=== PATIENT | male | born 1980 | race Caucasian/White ===

== ENCOUNTER → 2016-10-24 | Outpatient (CLI) | payer OTHER ==
[~2016-10-24] MED LIST: ACET-1600 PO; MULT-658 PO
== END | disposition home or self-care (01) ==
LOC: STAR 15:30
PROVIDERS: ATTEND Surgery
DX: Z02.9 Encounter for administrative examinations, unspecified (principal)

== ENCOUNTER 2016-11-06 09:00 | Day surgery (SDC) | payer OTHER ==
[~2016-11-06] VITALS: Ht 180.3 cm; Wt 92.1 kg
[2016-11-06 09:15] VITALS: BP 127/77
[2016-11-06] MEDS ORDERED: LACTATED RINGERS 1,000 ML IV SCH (09:16)
[2016-11-06] MEDS ORDERED: LIDOCAINE 1%, 2ML ONE (09:20)
[2016-11-06] MEDS ORDERED: LIDOCAINE 1%, 2ML SQ PRN (09:30)
[2016-11-06] MEDS ORDERED: EPINEPHRINE 1 MG/ML, 1ML ONE (10:39)
[2016-11-06] MEDS ORDERED: BUPIVACAINE/PF 0.5% ONE (10:39)
[2016-11-06] MEDS ORDERED: MIDAZOLAM 1 MG/ML, 2ML ONE (10:53)
[2016-11-06] MEDS ORDERED: FENTANYL PF 100 MCG/2ML ONE ×2 (10:53)
[2016-11-06] MEDS ORDERED: BUPIVACAINE/PF-EPI 0.5% 1:200K IM ONE (11:00)
[2016-11-06] MEDS ORDERED: BUPIVACAINE/PF-EPI 0.25% 1:200K ONE (11:14)
[2016-11-06] MEDS ORDERED: cloniDINE/PF 100 MCG/ML, 10 ML ONE (11:14)
[2016-11-06] MEDS ORDERED: CEFAZOLIN 1,000 MG ONE (11:22)
[2016-11-06] MEDS ORDERED: PROPOFOL 10 MG/ML, 20ML ONE (11:22)
[2016-11-06] MEDS ORDERED: ONDANSETRON 2MG/ML, 2ML ONE (11:22)
[2016-11-06] MEDS ORDERED: KETOROLAC 30 MG/1 ML ONE (11:22)
[2016-11-06] MEDS ORDERED: KETAMINE 10 MG/ML, 20ML ONE (11:22)
[2016-11-06] MEDS ORDERED: DEXAMETHASONE 4 MG/ML, 1ML ONE (11:22)
[2016-11-06] MEDS ORDERED: ROCURONIUM 10 MG/ML ONE (11:22)
[2016-11-06] MEDS ORDERED: ACETAMINOPHEN 325 MG TABLET PO PRN (12:00)
[2016-11-06] MEDS ORDERED: PROMETHAZINE 25 MG/ML, 1ML IV PRN (12:00)
[2016-11-06] MEDS ORDERED: ONDANSETRON 2MG/ML, 2ML IVPush PRN (12:00)
[2016-11-06] MEDS ORDERED: HYDROmorphone 1 MG/ML, 1ML IV PRN (12:00)
[2016-11-06] MEDS ORDERED: FENTANYL PF 100 MCG/2ML IV PRN (12:00)
[2016-11-06] MEDS ORDERED: MEPERIDINE/PF 25MG/0.5ML IVPush PRN (12:00)
[2016-11-06] MEDS ORDERED: OXYcodone 5 MG/5 ML ORAL.SOL UDC PO PRN (12:00)
[2016-11-06] MEDS ORDERED: LORazepam 2 MG/ML, 1ML IVPush PRN (12:00)
[2016-11-06] MEDS ORDERED: OXYcodone 5 MG/5 ML ORAL.SOL UDC ONE (13:14)
[2016-11-06] MEDS ORDERED: ACETAMINOPHEN 650 MG/20.3 ML UDC ONE (13:14)
== END 2016-11-06 16:00 | disposition home or self-care (01) ==
LOC: OUT 09:00
PROVIDERS: ATTEND Surgery
DX: K40.91 Unilateral inguinal hernia, without obstruction or gangrene, recurrent (principal)
CPT/HCPCS: 49650; C1781; J0171; J0690; J0735; J1100; J1885; J2250; J2405; J2704; J3010; J3490; J7120; S2900

== ENCOUNTER 2016-11-08 04:21 | Inpatient (IN) | payer OTHER ==
[~2016-11-08] VITALS: Ht 180.3 cm; Wt 93.0 kg
[2016-11-08] MEDS ORDERED: SODIUM CHLORIDE 0.9% 1,000 ML IV ONE (04:46)
[2016-11-08] MEDS ORDERED: HYDROmorphone 1 MG/ML, 1ML ONE ×3 (04:56→07:47)
[2016-11-08] MEDS ORDERED: ONDANSETRON 2MG/ML, 2ML ONE (04:56)
[2016-11-08] MEDS ORDERED: SODIUM CHLORIDE FLUSH 10ML SYR IVF ONE (05:00)
[2016-11-08] MEDS ORDERED: ONDANSETRON 2MG/ML, 2ML IVPush ONE (05:00)
[2016-11-08] MEDS ORDERED: SODIUM CHLORIDE 0.9% 1,000ML IVBOLUS ONE (05:00)
[2016-11-08] MEDS: HYDROmorphone 1 MG/ML, 1ML IVPush PRN ×2 (05:00→05:25)
[2016-11-08 05:34] LABS: HEMATOCRIT 47.7 % (39.2-51.8); HEMOGLOBIN 16.2 g/dL (13.7-18.0); WHITE BLOOD COUNT 11.8 x10^3/uL (3.4-10)
[2016-11-08 05:54] LABS: ASPARTATE AMINO TRANSFERASE 20 U/L (15-37); BLOOD UREA NITROGEN 17 mg/dL (7-18)
[2016-11-08 06:17] LABS: PATH.CAST-FLAG NOT PRESENT; SPERM-FLAG NOT PRESENT; SRC-FLAG NOT PRESENT; XTAL-FLAG NOT PRESENT; YLC-FLAG NOT PRESENT
[2016-11-08] MEDS ORDERED: METOCLOPRAMIDE 5 MG/ML, 2ML IVPush ONE (06:30)
[2016-11-08] MEDS ORDERED: METOCLOPRAMIDE 5 MG/ML, 2ML ONE (06:36)
[2016-11-08] MEDS ORDERED: HYDROmorphone 1 MG/ML, 1ML IV ONE (08:00)
[2016-11-08 09:32] VITALS: BP 124/81
[2016-11-08] MEDS: LACTATED RINGERS 1,000 ML IV SCH (09:52)
[2016-11-08] MEDS: ONDANSETRON 2MG/ML, 2ML IV PRN ×3 (09:52→20:31)
[2016-11-08] MEDS: morphine SULFATE 10 MG/ML, 1ML IV PRN ×7 (09:52→20:42)
[2016-11-08] MEDS ORDERED: METHYLNALTREXONE 12 MG/0.6 ML SQ SCH (10:00)
[2016-11-08] MEDS: OXYcodone IR 5MG TABLET PO PRN (10:35)
[2016-11-08 13:59] VITALS: BP 114/74
[2016-11-08] MEDS ORDERED: BENZOCAINE 20% SPRAY 0.5ML ONE (14:03)
[2016-11-08] MEDS ORDERED: LIDOCAINE GEL 2%, 5ML ONE (14:03)
[2016-11-08 19:49] VITALS: BP 142/92
[2016-11-09] MEDS: morphine SULFATE 10 MG/ML, 1ML IV PRN ×9 (00:07→23:57)
[2016-11-09 01:41] VITALS: BP 133/84
[2016-11-09] MEDS: ONDANSETRON 2MG/ML, 2ML IV PRN ×2 (03:34→18:12)
[2016-11-09] MEDS: LACTATED RINGERS 1,000 ML IV SCH (05:12)
[2016-11-09 06:22] LABS: HEMATOCRIT 45.4 % (39.2-51.8); HEMOGLOBIN 15.7 g/dL (13.7-18.0); WHITE BLOOD COUNT 5.4 x10^3/uL (3.4-10)
[2016-11-09 10:39] VITALS: BP 147/89
[2016-11-09 14:30] VITALS: BP 136/84
[2016-11-09 19:45] VITALS: BP 137/81
[2016-11-10] MEDS: LACTATED RINGERS 1,000 ML IV SCH ×2 (00:01→10:00)
[2016-11-10] MEDS: morphine SULFATE 10 MG/ML, 1ML IV PRN ×8 (03:12→22:30)
[2016-11-10 03:21] VITALS: BP 141/82
[2016-11-10 05:47] LABS: HEMATOCRIT 44.5 % (39.2-51.8); HEMOGLOBIN 15.1 g/dL (13.7-18.0)
[2016-11-10 06:10] LABS: ASPARTATE AMINO TRANSFERASE 18 U/L (15-37); BLOOD UREA NITROGEN 11 mg/dL (7-18)
[2016-11-10 07:18] VITALS: BP 143/83
[2016-11-10] MEDS: ONDANSETRON 2MG/ML, 2ML IV PRN (09:41)
[2016-11-10 14:08] VITALS: BP 121/76
[2016-11-10 19:40] VITALS: BP 120/81
[2016-11-11] MEDS: morphine SULFATE 10 MG/ML, 1ML IV PRN ×3 (02:16→09:28)
[2016-11-11] MEDS: LACTATED RINGERS 1,000 ML IV SCH ×2 (02:16→11:15)
[2016-11-11 02:32] VITALS: BP 135/80
[2016-11-11] MEDS ORDERED: MORPHINE SULFATE 4 MG/ML, 1ML ONE (06:30)
[2016-11-11 07:28] VITALS: BP 127/75
[2016-11-11] MEDS ORDERED: OXYC5CAP2 PO (10:24)
[2016-11-11] MEDS ORDERED: IBUP-1223 PO (10:27)
[2016-11-11] MEDS ORDERED: ACET-76 PO (10:28)
[2016-11-11] MEDS: OXYcodone IR 5MG TABLET PO PRN (12:04)
[2016-11-11 12:11] VITALS: BP 120/91
== END 2016-11-11 13:04 | disposition home or self-care (01) | DRG 394 ==
LOC: ED 05:28 → EDIP 08:33 → 4NOR 09:16 → DCLOUNGE 11-11 12:35
PROVIDERS: ADMIT Surgery; ATTEND Surgery
DX: K91.89 Other postprocedural complications and disorders of digestive system (principal); K56.0 Paralytic ileus; Y83.8 Other surgical procedures as the cause of abnormal reaction of the patient, or of later complication, without mention of misadventure at the time of the procedure; Y92.89 Other specified places as the place of occurrence of the external cause
CPT/HCPCS: 36415; 74020; 74022; 74340; 80053; 81001; 83690; 85025; 87324; 96374; 96375; 96376; J1170; J2405; J2270; J2765; J7030; J7120

== ENCOUNTER → 2018-06-10 | Outpatient (CLI) | payer OTHER ==
[~2018-06-10] MED LIST changes: +ACET-76 PO; +IBUP-1223 PO; +OXYC5CAP2 PO
== END | disposition home or self-care (01) ==
LOC: RAD 13:58
PROVIDERS: ATTEND Nurse Practitioner Critical Care Medicine
DX: M76.891 Other specified enthesopathies of right lower limb, excluding foot (principal); M85.68 Other cyst of bone, other site; M51.36 Other intervertebral disc degeneration, lumbar region